=== PATIENT | female | born 1995 | race Caucasian/White ===

== ENCOUNTER 2018-11-22 12:18 | Day surgery (SDC) | payer OTHER ==
[~2018-11-22] VITALS: Ht 167.6 cm; Wt 72.1 kg
[2018-11-22] MEDS ORDERED: DOCU100 (12:51)
[2018-11-22] MEDS ORDERED: [UNRECOGNIZED DRUG - OTHER] (12:52)
[2018-11-22] MEDS ORDERED: PROM25S (12:52)
[2018-11-22] MEDS ORDERED: SENN187 (12:53)
[2018-11-22] MEDS ORDERED: OMEPRAZOLE20 MG (12:53)
--- NOTE | 2018-11-22 13:59 | NUR ---
11/22/18 1359 Yaneli Simeon LATE ENTRY DURING RECOVERY PATIENT REFUSED MULTIPLE OFFERS OF PO FLUIDS.
== END 2018-11-22 13:50 | disposition home or self-care (01) ==
LOC: ORSCSDS 12:18
PROVIDERS: Internal Medicine Gastroenterology
PROC: 0DB58ZX Excision of Esophagus, Via Natural or Artificial Opening Endoscopic, Diagnostic (ICD-10-PCS; principal; 2018-11-22 14:45)
PROC: 0DB68ZX Excision of Stomach, Via Natural or Artificial Opening Endoscopic, Diagnostic (ICD-10-PCS; principal; 2018-11-22 14:45)
PROC: 0DB98ZX Excision of Duodenum, Via Natural or Artificial Opening Endoscopic, Diagnostic (ICD-10-PCS; principal; 2018-11-22 14:45)
DX: K22.70 Barrett's esophagus without dysplasia (principal); K30 Functional dyspepsia; K44.9 Diaphragmatic hernia without obstruction or gangrene; K29.70 Gastritis, unspecified, without bleeding; R11.2 Nausea with vomiting, unspecified; F17.210 Nicotine dependence, cigarettes, uncomplicated; Z79.899 Other long term (current) drug therapy
CPT/HCPCS: 88305; 88342; J2250; J2704; J7120

== ENCOUNTER 2019-03-23 09:31 | Day surgery (SDC) | payer OTHER ==
[~2019-03-23] VITALS: Ht 165.1 cm; Wt 154.8 kg
[~2019-03-23 09:31] MED LIST: Aviane1 EACH PO; DOCU100 PO; OMEPRAZOLE20 MG; PANT40 PO; PARO10 PO; PROM25S; SENN187; Senna8.6 MG PO; Zofran4 MG PO; [UNRECOGNIZED DRUG - OTHER]
--- NOTE | 2019-03-23 10:54 | NUR ---
03/23/19 1054 [facility] [place] SECOND IV WORKED BY [facility]
== END 2019-03-23 12:15 | disposition home or self-care (01) ==
LOC: ORSCSDS 09:31
PROVIDERS: Internal Medicine Gastroenterology
PROC: 0DB58ZX Excision of Esophagus, Via Natural or Artificial Opening Endoscopic, Diagnostic (ICD-10-PCS; principal; 2019-03-23 11:30)
DX: K22.70 Barrett's esophagus without dysplasia (principal); K21.9 Gastro-esophageal reflux disease without esophagitis; K44.9 Diaphragmatic hernia without obstruction or gangrene; F17.210 Nicotine dependence, cigarettes, uncomplicated; Z79.899 Other long term (current) drug therapy
CPT/HCPCS: 88305; J2250; J2704; J7120